=== PATIENT | female | born 1985 | race Caucasian/White ===

== ENCOUNTER → 2022-01-31 14:26 | Outpatient (BNVA) | payer OTHER, SELFPAY | PROVIDERS: Family Provider Family Medicine; PCP Family Medicine; Visit Provider Internal Medicine | DX: R63.5 Abnormal weight gain (principal) | CPT/HCPCS: 82533; 83001; 83002; 84146; 84403; 84436; 84443 ==

== ENCOUNTER 2022-07-12 14:53 | Outpatient (CLI) | payer OTHER, SELFPAY ==
[2022-07-12 16:52] LABS: Basophils % 0.2 %; Eosinophils # 0.3 10^3/uL (0.0-0.8); Eosinophils % 3.9 %; Hematocrit 37.3 % (37.0-47.0); Lymphocytes # 2.2 10^3/uL (0.8-4.8); Lymphocytes % 34.2 %; Mean Corpuscular HGB Conc 32.2 g/dL (30.0-36.0); Mean Corpuscular Hemoglobin 26.2 pg (28.0-34.0); Mean Corpuscular Volume 81.4 fl (81-99); Mean Platelet Volume 9.1 fL (7.4-10.4); Monocytes # 0.6 10^3/uL (0.2-0.9); Monocytes % 9.1 %; Neutrophils # 3.41 10^3/uL (1.8-7.7); Neutrophils % 52.4 %; Nucleated Red Blood Cells % 0 %; Platelet Count 313 10^3/cmm (130-400); Red Blood Count 4.58 10^6/uL (4.1-5.3); White Blood Count 6.5 10^3/uL (4.0-10.0)
[2022-07-12 18:16] LABS: 25 Hydroxy Vitamin D 46 ng/mL (30-100); Ferritin 121 ng/mL (15-150); Iron 30 ug/dL (37-145); Total Iron Binding Capacity 373 mcg/dl; Unsaturated Iron Binding 343 ug/dL (112-347)
[2022-07-16 18:08] LABS: Zinc Level, Serum or Plasma 64 mcg/dL (60-130)
== END 2022-07-12 14:54 | disposition home or self-care (01) ==
PROVIDERS: PCP Family Medicine; Visit Provider Nurse Practitioner Family
DX: L65.9 Nonscarring hair loss, unspecified (principal)
CPT/HCPCS: 82306; 82728; 83540; 83550; 84630; 85025

== ENCOUNTER 2023-01-26 07:51 | Outpatient (CLI) | payer OTHER, SELFPAY ==
[2023-01-26 09:33] LABS: Estmated Average Glucose 111; Hemoglobin A1C 5.5 % (4.0-6.0)
== END 2023-01-26 07:52 | disposition home or self-care (01) ==
PROVIDERS: PCP Family Medicine; Visit Provider Family Medicine
DX: L65.9 Nonscarring hair loss, unspecified (principal); R53.83 Other fatigue
CPT/HCPCS: 83036; 83525

== ENCOUNTER 2024-01-10 07:46 | Outpatient (CLI) | payer OTHER, SELFPAY ==
[2024-01-10 08:26] LABS: Alanine Aminotransferase 117 U/L (0-33); Albumin Level 4.6 g/dL (3.5-5.2); Alkaline Phosphatase 104 U/L (35-105); Anion Gap 17.3 (5-19); Aspartate Amino Transferase 85 U/L (0-32); Blood Urea Nitrogen 9 mg/dL (6-20); Calcium 9.2 mg/dL (8.5-10.5); Carbon Dioxide 24 mmol/L (22-29); Chloride 100 mmol/L (98-107); Globulin 3.2 g/dL (1.3-4.6); Glomerular Filtration Rate 138.1 mL/min (90-130); Glucose 113 mg/dL (65-115); Osmolality Calculated 283 mOsm/kg (285-295); Potassium 4.3 mmol/L (3.5-5.1); Sodium 137 mmol/L (136-145); Total Bilirubin 0.3 mg/dL (0.15-1.2); Total Protein 7.8 g/dL (6.6-8.7)
[2024-01-10 09:21] LABS: Estmated Average Glucose 114; Hemoglobin A1C 5.6 % (4.0-6.0)
== END 2024-01-10 07:47 | disposition home or self-care (01) ==
PROVIDERS: PCP Family Medicine; Visit Provider Nurse Practitioner Family
DX: R63.5 Abnormal weight gain (principal)
CPT/HCPCS: 36415; 80053; 83036

== ENCOUNTER 2024-12-04 16:46 | Emergency (ER) | payer OTHER, SELFPAY ==
[2024-12-04] VITALS (11 sets, daily range): BP systolic 147–205; BP diastolic 87–128; PULSE 66–95; RESP 18; TEMP 36.4; O2SAT 94–99; BMI 34.1
--- NOTE | 2024-12-04 17:52 | CTR_ITS ---
PROCEDURE INFORMATION: Exam: CT Head Without Contrast Exam date and time: 12/04/2024 6:26 PM Age: 39 years old Clinical indication: Other: Migraine; Additional info: [employer] [facility] TECHNIQUE: Imaging protocol: Computed tomography of the head without contrast. Radiation optimization: All CT scans at this facility use at least one of these dose optimization techniques: automated exposure control; mA and/or kV adjustment per patient size (includes targeted exams where dose is matched to clinical indication); or iterative reconstruction. COMPARISON: No relevant prior studies available. RADIATION DOSE METRICS: Total DLP (mGy-cm): 1057.88 FINDINGS: Brain: Normal. No hemorrhage. Unremarkable white matter. No mass effect. Cerebral ventricles: No ventriculomegaly. Paranasal sinuses: Visualized sinuses are unremarkable. No fluid levels. Mastoid air cells: Visualized mastoid air cells are well aerated. Bones: Unremarkable. No acute fracture. Soft tissues: Unremarkable. CT/CT head wo con* [id number] IMPRESSION: No acute intracranial abnormality.
--- NOTE | 2024-12-04 17:55 | ED_ITS ---
HPI - Headache 2 General: Chief Complaint: Headache Stated Complaint: migraine Time Seen by Provider: 12/04/24 17:48 History of Present Illness: 39-year-old female comes in today for co mplaints of a headache that comes on all of a sudden like 0-10. Patient appears nontoxic. Patient was seen at [facility] on Sunday for similar event. Patient reports getting Toradol and Compazine at that time which seemed to improve her headache but came back after she was discharged. Patient reported then the headache just resolved. Patient does have a history of migraine headaches but says that this is worse than her usual migraines. Patient works in oncology as a nurse. Patient blood pressure was elevated at the time of the headache and was recommended just to monitor it. Patient blood pressure is elevated at this time but patient does complain of significant pain. Related Data Home Medications ?Medication ?Instructions ?Recorded ?Confirmed sumatriptan succinate 100 mg tablet 100 mg PO Q2H PRN 01/31/22 07/11/22 rizatriptan 10 mg tablet (Maxalt) 10 mg PO Q2H PRN 07/11/22 escitalopram oxalate 10 mg tablet 20 mg PO DAILY 07/1107/11/22 (Lexapro) Previous Rx's ?Medication ?Instructions ?Recorded clindamycin 1.2 % (1 % 1 applic topical DAILY #45 g alex 07/11/22 base)-benzoyl peroxide 5 % topical gel mupirocin 2 % topical ointment 1 applic topical BID #2 2 grams 07/11/22 minoxidil 5 % topical foam 1 ea topical BID #60 grams 07/17/22 (Rogaine) ferrous gluconate 324 mg (38 mg 324 mg PO DAILY #30 ta bs 07/19/22 iron) tablet Allergies Allergy/AdvReac Type Severity Reaction Status Date / Time gentamicin Allergy Unknown Verified 12/04/24 17:01 Sulfa (Sulfonamide Allergy Unknown Verified 12/04/24 17:01 Antibiotics) Review of Systems 2 General: Reports: 10 or more systems reviewed and unremarkable except in HPI and below PFSH ED 2 PFSH: Social History Smoking and tobacco/nicotine status: never used tobacco/nicotine Physical Exam 2 Const: COMMON NORMALS: alert HENMT: COMMON NORMALS: normocephalic HEAD & SCALP: normocephalic Neck/C-Spine: COMMON NORMALS: full ROM Resp: COMMON NORMALS: normal respiratory effort Cardio: COMMON NORMALS: regular rate RATE: regular rate GI: COMMON NORMALS: non-tender Back/Pelvis: COMMON NORMALS: thoracic and lumbar spine normal to inspection Extremity: COMMON NORMALS: full ROM Neuro: SENSORIUM/ORIENTATION: Yes alert Psych: COMMON NORMALS: cooperative Skin: COMMON NORMALS: turgor normal GENERAL SKIN EXAM: turgor normal Course 2 Vital Signs: Vital signs: Vital Signs Temperature 97.5 F L 12/04/24 16:51 Pulse Rate 82 12/04/24 21:50 Blood Pressure 154/96 12/04/24 21:50 Pulse Oximetry 95 12/04/24 21:50 Oxygen Delivery Me thod Room Air 12/04/24 21:50 MDM - Headache Medical Decision Making 39-year-old female comes in today for complaints of headache. Patient appears nontoxic. Patient has no focal deficits. Patient was all extremities well. Patient does appear in pain. Pupils are equal and reactive. Patient is sensitive to light. Patient has known history of migraine headaches. Patient's blood pressure is elevated at 194. Differential diagnosis includes not limited to migraine headache, cluster headache, subarachnoid hemorrhage, uncontrolled hypertension. 1799, patient was given 10 mg of Reglan, 50 mg of diphenhydramine, and 10 mg of dexamethasone for headache therapy. Labs were ordered and a head CT was ordered for further evaluation. 1829, patient continued to complain of headache with no relief and blood pressure remained elevated at 190 systolic. Patient was ordered 10 mg of hydralazine for treatment. CT of the head was unremarkable. Laboratory values were normal. CRP and sed rate were both normal. TSH was normal. Kidney function was normal. 1929, patient continued to complain of headache 1 mg of DHE was ordered for treatment. 1999, patient was given 4 mg of Zofran for nausea and vomiting after DHE. Blood pressure had come down to 180 systolic, 10 mg of hydralazine was repeated. 1999, 500 mg of Depacon was ordered for persistent headache. 2219, patient had some improvement of headache from a 10-7 level still uncomfortable to go home. Reviewed patient with Dr. Younger who recommended retreatment of headache with medication including nausea medication and having patient follow-up with primary care if patient was agreeable. Reviewed this with patient who agreed to plan. Patient was ordered 10 mg of Compazine and 1 mg of hydromorphone. Patient will be monitored and discharged home after treatment. Lab Data 12/04/24 18:20 12/04/24 18:[address] 12/04/24 17:52 IMPRESSION: No acute intracranial abnormality. Laboratory Results WBC 10.56 10^3/uL (3.29-11.43) 12/04/24 18:20 RBC 4.99 10^6/uL (3.85-5.65) 12/04/24 18:20 Hgb 12.50 g/dL (11.27-16.99) 12/04/24 18:20 Hct 39.5 % (36-47) 12/04/24 18:20 MCV 79.2 fl (85-98) L 12/04/24 18:20 MCH 25.1 pg (27-33) L 12/04/24 18:20 MCHC 31.6 g/dL (30-55) 12/04/24 18:20 RDW 13.6 % (12.1-15.1) 12/04/24 18:20 Plt Count 319 10^3/cmm (157-399) 12/04/24 18:20 MPV 8.9 fL (7.4-10.4) 12/04/24 18:20 Neut % (Auto) 63.3 % 12/04/24 18:20 Lymph % (Auto) 29.3 % 12/04/24 18:20 [place] % (Auto) 5.0 % 12/04/24 18:20 Eos % (Auto) 1.6 % 12/04/24 18:20 Baso % (Auto) 0.5 % 12/04/24 18:20 Neut # (Auto) 6.69 10^3/uL (1.8-7.7) 12/04/24 18:20 Lymph # (Auto) 3.1 10^3/uL (0.8-4.8) 12/04/24 18:20 [place] # (Auto) 0.5 10^3/uL (0.2-0.9) 12/04/24 18:20 Eos # (Auto) 0.2 10^3/uL (0.0-0.8) 12/04/24 18:20 Baso # (Auto) 0.1 10^3/uL (0.0-0.1) 12/04/24 18:20 Nucleated RBC % (auto) 0 % 12/04/24 18:20 Nucleated RBCs # 0.0 /100WBC 12/04/24 18:20 ESR 7 mm/hr (0-15) 12/04/24 18:20 Sodium 141 mmol/L (136-145) 12/04/24 18:20 Potassium 3.7 mmol/L (3.5-5.1) 12/04/24 18:20 Chloride 101 mmol/L (98-107) 12/04/24 18:20 Carbon Dioxide 25 mmol/L (22-29) 12/04/24 18:20 Anion Gap 18.7 (5-19) 12/04/24 18:20 BUN 11 mg/dL (6-20) 12/04/24 18:20 Creatinine 0.5 mg/dL (0.5-0.9) 12/04/24 18:20 GFR Calculation 137.4 mL/min (90-130) H 12/04/24 18:20 Glucose 141 mg/dL (65-115) H 12/04/24 18:20 Calculated Osmolality 294 mOsm/kg (285-295) 12/04/24 18:20 Calcium 9.4 mg/dL (8.5-10.5) 12/04/24 18:20 Total Bilirubin 0.2 mg/dL (0.15-1.2) 12/04/24 18:20 AST 32 U/L (0-32) 12/04/24 18:20 ALT 44 U/L (0-33) H 12/04/24 18:20 Alkaline Phosphatase 102 U/L (35-105) 12/04/24 18:20 C-Reactive Protein 6.0 mg/L (0.0-4.9) H 12/04/24 18:20 Total Protein 7.7 g/dL (6.6-8.7) 12/04/24 18:20 Albumin 4.8 g/dL (3.5-5.2) 12/04/24 18:20 Globulin 2.9 g/dL (1.3-4.6) 12/04/24 18:20 TSH 2.35 uIU/mL (0.27-4.20) 12/04/24 18:20 All radiology interpretation(s) finalized by discharge Discharge Plan Discharge Patient Disposition: Home Clinical Impression: Headache Qualifiers: Headache type: unspecified Headache chronicity pattern: acute headache I ntractability: intractable Qualified Code(s): R51.9 - Headache, unspecified Condition: Stable Prescriptions: No Action sumatriptan succinate 100 mg tablet 100 mg PO Q2H PRN Rx Instructions: do not exceed 2 doses per 24 hrs mupirocin 2 % ointment 1 applic topical BID Qty: 22 1RF Rx Instructions: Apply to affected area(s) until healed. clindamycin-benzoyl peroxide 1.2 %(1 % base) -5 % gel 1 applic topical DAILY Qty: 45 6RF Rx Instructions: Apply thin film to face, chest, and back every morning. May bleach clothing. rizatriptan [Maxalt] 10 mg tablet 10 mg PO Q2H PRN Rx Instructions: do not exceed 3 doses per 24 hrs escitalopram oxalate [Lexapro] 10 mg tablet 20 mg PO DAILY minoxidil [Rogaine] 5 % foam 1 ea topical BID Qty: 60 2RF Rx Instructions: Apply to wet hair, morning and night, every day. Massage well into scalp and rinse. ferrous gluconate 324 mg (38 mg iron) tablet 324 mg PO DAILY Qty: 30 0RF Rx Instructions: Take one tablet by mouth once a day for a month Discharge Orders: Discharge ED (Routine); Ordered 12/04/24 Ordered By: Tl Tolliver Referrals: Naman Purdy MD [Primary Care Provider] - Discharge Diet: Usual diet Discharge Activity: Increase activity as tolerated Patient Instructions: Acute Headache (ED) Activity Restrictions/Additional Instructions: Home and rest. Drink plenty of water and fluids. Follow-up with primary care in the morning. Return to ED for new concerns. Print Language: Polish Coding Level of Care Code ED Restaurant Crew Member for Amee Armendariz
[2024-12-04] MEDS: dexamethasone 10 mg/mL INJ IVP (18:14)
[2024-12-04] MEDS: diphenhydrAMINE 50 mg/mL SDV 1mL IVP (18:16)
[2024-12-04] MEDS: metoclopramide 5 mg/mL SDV 2 mL 10 MG IVP (18:17)
[2024-12-04 18:32] LABS: Basophils # 0.1 10^3/uL (0.0-0.1); Basophils % 0.5 %; Eosinophils # 0.2 10^3/uL (0.0-0.8); Eosinophils % 1.6 %; Hematocrit 39.5 % (36-47); Lymphocytes # 3.1 10^3/uL (0.8-4.8); Lymphocytes % 29.3 %; Mean Corpuscular HGB Conc 31.6 g/dL (30-55); Mean Corpuscular Hemoglobin 25.1 pg (27-33); Mean Corpuscular Volume 79.2 fl (85-98); Mean Platelet Volume 8.9 fL (7.4-10.4); Monocytes # 0.5 10^3/uL (0.2-0.9); Neutrophils # 6.69 10^3/uL (1.8-7.7); Neutrophils % 63.3 %; Nucleated Red Blood Cells % 0 %; Platelet Count 319 10^3/cmm (157-399); Red Blood Count 4.99 10^6/uL (3.85-5.65); Red Cell Distribution Width 13.6 % (12.1-15.1); White Blood Count 10.56 10^3/uL (3.29-11.43)
[2024-12-04 18:33] LABS: Erythrocyte Sedimentation Rate 7 mm/hr (0-15)
[2024-12-04 19:00] LABS: Alanine Aminotransferase 44 U/L (0-33); Albumin Level 4.8 g/dL (3.5-5.2); Alkaline Phosphatase 102 U/L (35-105); Anion Gap 18.7 (5-19); Aspartate Amino Transferase 32 U/L (0-32); Blood Urea Nitrogen 11 mg/dL (6-20); Calcium 9.4 mg/dL (8.5-10.5); Carbon Dioxide 25 mmol/L (22-29); Chloride 101 mmol/L (98-107); Creatinine Clr Calc Pharmacy 170.2558; Globulin 2.9 g/dL (1.3-4.6); Glomerular Filtration Rate 137.4 mL/min (90-130); Glucose 141 mg/dL (65-115); Osmolality Calculated 294 mOsm/kg (285-295); Potassium 3.7 mmol/L (3.5-5.1); Sodium 141 mmol/L (136-145); Thyroid Stimulating Hormone 2.35 uIU/mL (0.27-4.20); Total Bilirubin 0.2 mg/dL (0.15-1.2); Total Protein 7.7 g/dL (6.6-8.7)
[2024-12-04] MEDS: hyDRALAzine 20 mg/mL INJ 1 mL 10 MG IVP ×2 (19:15→21:25)
[2024-12-04] MEDS: dihydroergotamine 1 mg/mL Inj IVP (20:03)
[2024-12-04] MEDS: ondansetron 2 mg/ML SDV 2 mL 4 MG IVP (20:21)
--- NOTE | 2024-12-04 21:07 | PC.NURSE ---
This nurse was instructed to re-assess pain 1 hour after DHE was administered. Patient stated that pain is remaining the same as previously documented. Sharee DESIGN ENG[employer] notified.
[2024-12-04] MEDS: valproic acid inj 500 MG in sodium chloride 0.9% 50 ML 55 MG IV (21:25)
[2024-12-04] MEDS: prochlorperazine 10 mg/2 mL Inj IVP (23:11)
[2024-12-04] MEDS: HYDROmorphone 1 mg/mL INJ 1 mL IVP (23:12)
== END 2024-12-04 23:45 | disposition home or self-care (01) ==
PROVIDERS: Emergency Provider Nurse Practitioner Family; PCP Family Medicine
DX: R51.9 Headache, unspecified (principal)
CPT/HCPCS: 70450; 80053; 84443; 85025; 85651; 86140; 96365; 96366; 96375; 96376; 99285; J0360; J0780; J1100; J1110; J1171; J1200; J2405; J2765; J3490